=== PATIENT | female | born 1985 | race Caucasian/White ===

== ENCOUNTER 2020-05-05 12:45 | Emergency (ER) | payer SELFPAY ==
[~2020-05-05 12:45] MED LIST: AUGMENTIN 875-1 EACH PO; FLONASE 0.05% N16 GM; IBU800 MG PO; IBUPROFEN600 MG PO; IBUPROFEN800 MG PO; ZITHROMAX250 MG PO; ZOFRAN4 MG PO
[2020-05-06] MEDS ORDERED: MEDROL4 MG PO (16:28)
[2020-05-06] MEDS ORDERED: ZITHROMAX500 MG PO (16:28)
[2020-05-06] MEDS ORDERED: TESSALON PERLE100 MG PO (16:28)
== END 2020-05-05 13:50 | disposition left against medical advice (07) ==
LOC: ER1 12:45
DX: Z53.21 Procedure and treatment not carried out due to patient leaving prior to being seen by health care provider (principal)

== ENCOUNTER 2020-05-06 14:29 | Emergency (ER) | payer OTHER ==
[2020-05-06 15:11] LABS: HEMOGLOBIN 14.6 gm/dl (12.3-15.3); RED BLOOD COUNT 4.81 M/UL (4.00-5.10)
[2020-05-06 15:25] LABS: BUN/CREATININE RATIO 14 (0-10)
[2020-05-06] MEDS ORDERED: TESSALON PERLE100 MG PO (16:28)
[2020-05-06] MEDS ORDERED: MEDROL4 MG PO (16:28)
[2020-05-06] MEDS ORDERED: ZITHROMAX500 MG PO (16:28)
== END 2020-05-06 17:01 | disposition home or self-care (01) ==
LOC: ER1 14:29
PROVIDERS: Preventive Medicine Occupational Medicine
DX: U07.1 COVID-19 (principal); F17.210 Nicotine dependence, cigarettes, uncomplicated
CPT/HCPCS: 0240U; 36415; 71045; 80048; 85025; 99283

== ENCOUNTER → 2020-10-15 | Outpatient (CLI) | payer MEDICARE ==
[~2020-10-15] MED LIST changes: +MEDROL4 MG PO; +TESSALON PERLE100 MG PO; +ZITHROMAX500 MG PO
[2020-10-15 09:50] LABS: HEMOGLOBIN 16.3 gm/dl (12.3-15.3); RED BLOOD COUNT 5.28 M/UL (4.00-5.10)
[2020-10-15 10:17] LABS: BUN/CREATININE RATIO 15 (0-10)
== END ==
LOC: LAB 08:54
PROVIDERS: Emergency Medicine
DX: R21 Rash and other nonspecific skin eruption (principal); R23.3 Spontaneous ecchymoses; W57.XXXA Bitten or stung by nonvenomous insect and other nonvenomous arthropods, initial encounter
CPT/HCPCS: 36415; 80048; 85027; 85610; 85730